=== PATIENT | female | born 1990 | race American Indian/Alaskan Native ===

== ENCOUNTER 2020-04-04 20:41 | Emergency (ER) | payer OTHER ==
--- NOTE | 2020-04-04 21:07 | Emergency Department Report ---
HPI - General Chief Complaint: Fall Time Seen by Provider: 04/04/20 20:57 - HPI HPI: 29-year-old female presents to the emergency department via EMS from home after she slipped on the top of a stairwell and fell down about 5 steps landing on her buttocks. The patient has pain to the right arm from the shoulder down through the elbow. She is right-hand dominant. Apparently the patient lost consciousness for about 2 minutes. She denies any headache, neck pain, and does not think that she actually hit her head. She thinks that she lost consciousness secondary to the amount of pain in her arm. Patient was given 100 mcg of fentanyl without much relief. She has a past medical history of sleep apnea, ovarian cyst, cholecystectomy. ED Past Medical Hx - Past Medical History Previous Medical History?: Yes Additional medical history: sleep apnea, ovarian cyst - Surgical History Past Surgical History?: Yes Hx Cholecystectomy: Yes Additional Surgical History: - Social History Smoking Status: Never Smoker Substance Use Type: Alcohol ED Review of Systems ROS: Stated complaint: RIGHT ARM INJURY Other details as noted in HPI Comment: All other systems reviewed and negative Constitutional: denies: chills, fever Respiratory: denies: cough, shortness of breath Cardiovascular: denies: chest pain, palpitations Gastrointestinal: denies: abdominal pain, vomiting Musculoskeletal: arthralgia. denies: back pain Skin: denies: rash, lesions Neurological: denies: headache, weakness, numbness, paresthesias Physical Exam - Physical Exam Physical Exam: GENERAL: The patient is well-developed well-nourished. HENT: Normocephalic. Atraumatic. Patient has moist mucous membranes. EYES: Extraocular motions are intact. No nystagmus. NECK: Supple. Trachea is midline. No midline tenderness to palpation, step-off or deformity. CHEST/LUNGS: Clear to auscultation. There is no respiratory distress noted. HEART/CARDIOVASCULAR: Regular. There is no tachycardia. ABDOMEN: Abdomen is soft, nontender. Patient has normal bowel sounds. SKIN: Skin is warm and dry. NEURO: The patient is awake, alert, and oriented. The patient is cooperative. The patient has no focal neurologic deficits. Normal speech. MUSCULOSKELETAL: There is tenderness to palpation to the right upper arm from the shoulder to the elbow and pain increases with any movement of the arm. She is holding the right arm in internal rotation against her body. Decreased range of motion of the right upper extremity secondary to pain. +2/4 radial pulse and capillary refill less than 2 seconds to the affected right upper extremity. BACK: No midline thoracic or lumbar tenderness to palpation, step-off or deformity. - Moderate Sedation Indications: fracture/dislocation redu ASA Class: I Mallampati Airway Score: 2 Time of Last PO Intake: 13:00 Preparation: monitor technician applied, pulse oximeter, capnometry used, supplemental O2 applied, reversal agents at bedside, suction/airway equipment at bedside, IV secured Ketamine: IV Ketamine Dose: 50 IV Propofol Dose (mgs): 30 Complications: none Patient Tolerated Procedure: well - Orthopedic Joint Reduction Joint #1 Consent Obtained: written consent Time Out Performed: Yes Side: right Joint Reduction Location: shoulder Analgesia: moderate sedation Shoulder Technique Used (if applicable): traction/counter-traction, external rotation Post-Reduction Neuro Exam: intact Post-Reduction Vascular Exam: intact Post Reduction X-Ray Obtained: Yes Post Reduction X-Ray Results: reduced Splint Applied: Yes Patient Tolerated Procedure: well ED Medical Decision Making - Radiology Data Radiology results: image reviewed interpreted by me: Chest x-ray does not show any acute process. There are no pleural effusions, obvious pneumonia and there is no pneumothorax. X-ray of the right shoulder shows an anterior shoulder dislocation. Post reduction x-ray of the right shoulder shows appropriate placement of the humeral head within the glenohumeral joint showing reduction of the dislocation. X-ray of the right forearm does not show any fracture, dislocation, or any acute process. - Medical Decision Making This patient presents to the emergency department with complaint of right arm pain after falling down about 5 steps. Apparently the patient had some loss of consciousness but this occurred after the patient was already at the bottom of the steps and her right arm was being manipulated. Since being in the emergency department she is awake, alert, oriented. She has no focal, motor or sensory deficits and her cranial nerves have been intact. The patient has no complaints of any headache, neck pain, back pain and says that her only complaint is right upper extremity pain. An x-ray of the shoulder shows an anterior shoulder dislocation. Normal chest x-ray. X-ray of the right forearm does not show any fracture, dislocation, or any acute process. Patient was given moderate sedation after both written and verbal consent. The right shoulder was successfully reduced with tractioncountertraction and external rotation. Reduction confirmed with postprocedural x-ray. The patient was monitored until she was out of the sedation and back to her baseline mental status. She is neurovascularly intact and was placed in a shoulder immobilizer. The patient will be discharged home, picked up by her , and will follow-up with an orthopedist in the next few days. She will return to the ER with any worsening of her symptoms or any acute distress. Critical Care Time: No Critical care attestation.: If time is entered above; I have spent that time in minutes in the direct care of this critically ill patient, excluding procedure time. ED Disposition Clinical Impression: Dislocation of right shoulder joint Qualifiers: Encounter type: initial encounter Qualified Code(s): S43.004A - Unspecified dislocation of right shoulder joint, initial encounter Fall down stairs Qualifiers: Encounter type: initial encounter Qualified Code(s): W10.8XXA - Fall (on) (from) other stairs and steps, initial encounter Disposition: TO HOME OR SELFCARE Is pt being admited?: No Condition: Stable Instructions: Shoulder Dislocation (ED), Moderate Sedation (ED) Additional Instructions: Please follow-up with an orthopedist in the next few days. I have given you a referral for 2 different local orthopedic groups. I recommend staying in the shoulder immobilizer until follow-up with the orthopedist. Return to the emergency department with any worsening of your symptoms or any acute distress. Referrals: NGOZI SOLORIO MD [Primary Care Provider] - 3-5 Days KATE VOSS MD [Staff Physician] - 3-5 Days [facility] [Provider Group] - 3-5 Days Time of Disposition: 00:07
[2020-04-04] MEDS ORDERED: MORPHINE 4 MG/1 ML INJ IM ONE (21:20)
[2020-04-04] MEDS ORDERED: SODIUM CHLORIDE 0.9% 1000 ML 1,000 ML IV ONE (21:40)
[2020-04-04] MEDS ORDERED: KETAMINE 500 MG/5 ML VIAL MDV IV ONE (21:41)
[2020-04-04] MEDS ORDERED: propofoL 200 MG/20 ML VIAL IV ONE (21:41)
--- NOTE | 2020-04-04 22:11 | XRay Report ---
CHEST 1 VIEW 04/04/2020 8:57 PM INDICATION / CLINICAL INFORMATION: MAIN: fall; Pt reports she slipped on the top step, fell 5 steps landing on buttocks. Pt reporting RT humerus pain. told EMS patient +LOC 2 minutes. Pt does not believe she hit her head. Pt reportedly vomited on scene x 2 upon movement. . COMPARISON: None available. FINDINGS: SUPPORT DEVICES: None. HEART / MEDIASTINUM: No significant abnormality. LUNGS / PLEURA: No significant pulmonary or pleural abnormality. No pneumothorax. ADDITIONAL FINDINGS: Right anterior shoulder dislocation. IMPRESSION: 1. No acute pleural or pulmonary findings. 2. Right anterior shoulder dislocation. Signer Name: Ciro Berger MD Signed: 04/04/2020 10:07 PM Workstation Name: [email or web address]
--- NOTE | 2020-04-04 22:11 | XRay Report ---
RIGHT SHOULDER 2 VIEWS INDICATION / CLINICAL INFORMATION: MAIN: fall; Pt reports she slipped on the top step, fell 5 steps landing on buttocks. Pt reporting RT humerus pain. told EMS patient +LOC 2 minutes. Pt does not believe she hit her head. Pt reportedly vomited on scene x 2 upon movement. . COMPARISON: None available. FINDINGS: The humerus is dislocated anteroinferiorly with respect to the glenoid. No fracture is seen. Postredu ction radiographs are recommended. Signer Name: Ciro Berger MD Signed: 04/04/2020 10:07 PM Workstation Name: [id number]
--- NOTE | 2020-04-04 23:12 | XRay Report ---
RIGHT FOREARM 2 VIEWS INDICATION / CLINICAL INFORMATION: MAIN: right arm pain, fall down stairs; BEST IMAGES POSSIBLE DUE DISLOCATED SHOULDER, PAT.S PAIN, AND LIMITED MOBILITY, PAT. IN SLING COMPARISON: None available. FINDINGS: BONES / JOINT(S): No acute fracture or subluxation. No significant arthritis. SOFT TISSUES: No significant abnormality. ADDITIONAL FINDINGS: None. Signer Name: Vinicio Min MD Signed: 04/04/2020 11:08 PM Workstation Name: [id number]
--- NOTE | 2020-04-04 23:13 | XRay Report ---
RIGHT HUMERUS 2 VIEWS INDICATION / CLINICAL INFORMATION: MAIN: right arm pain, fall down stairs; BEST IMAGES POSSIBLE DUE DISLOCATED SHOULDER, PAT.S PAIN, AND LIMITED MOBILITY COMPARISON: None available. FINDINGS: BONES / JOINT(S): Subcoracoid dislocation. No fracture. No significant arthritis. SOFT TISSUES: No significant abnormality. ADDITIONAL FINDINGS: None. Signer Name: Vinicio Min MD Signed: 04/04/2020 11:09 PM Workstation Name: [id number]
--- NOTE | 2020-04-04 23:13 | XRay Report ---
RIGHT SHOULDER 3 VIEWS INDICATION / CLINICAL INFORMATION: post reduction shoulder dislocation COMPARISON: Earlier the same day. FINDINGS: BONES / JOINT(S): No acute fracture or subluxation. No significant arthritis. SOFT TISSUES: No significant abnormality. ADDITIONAL FINDINGS: None. Signer Name: Vinicio Min MD Signed: 04/04/2020 11:09 PM Workstation Name: [id number]
[2020-04-05 01:23] VITALS: BP 111/63
== END 2020-04-05 00:15 | disposition home or self-care (01) ==
LOC: ED 20:41
DX: S43.004A Unspecified dislocation of right shoulder joint, initial encounter (principal); Z90.49 Acquired absence of other specified parts of digestive tract; Z98.890 Other specified postprocedural states; W10.9XXA Fall (on) (from) unspecified stairs and steps, initial encounter; Y93.89 Activity, other specified; Y92.89 Other specified places as the place of occurrence of the external cause; Y99.8 Other external cause status
CPT/HCPCS: 23650; 71045; 73030; 73060; 73090; 96372; 99284; J2270; J2704; J7030; 96374; 96375